=== PATIENT | female | born 1995 | race African-American/Black ===

== ENCOUNTER 2024-11-11 16:58 | Emergency (ER) | payer OTHER ==
[~2024-11-11] VITALS: Ht 152.4 cm; Wt 49.9 kg
[2024-11-11] MEDS ORDERED: CEFTRIAXONE SODIUM 1,000 MG VIAL IM STA (17:16)
== END 2024-11-11 18:04 | disposition home or self-care (01) ==
LOC: ER 16:58
DX: J03.80 Acute tonsillitis due to other specified organisms (principal)